=== PATIENT | female | born 1960 ===

== ENCOUNTER 2017-12-01 09:13 | Day surgery (SDC) | payer SELFPAY ==
[2017-12-01] MEDS ORDERED: Propofol 10 mg/ml Inj (20 ML) ONE ×2 (09:49)
[2017-12-01 09:53] VITALS: BMI 26.6
[2017-12-01] MEDS ORDERED: Lactated Ringer's 500 ML IV SCH (10:15)
[2017-12-01 10:19] VITALS: TEMP 98; O2SAT 100
[2017-12-01 10:59] VITALS: BP 124/72; PULSE 73; RESP 13
== END 2017-12-01 10:57 | disposition home or self-care (01) ==
LOC: C.ENDO 09:13
PROVIDERS: ATTEND Internal Medicine
DX: D12.0 Benign neoplasm of cecum (principal); K64.9 Unspecified hemorrhoids
CPT/HCPCS: 45388; 88305; J2704; J7120